=== PATIENT | female | born 1970 | race Two or more races ===

== ENCOUNTER 2018-05-25 15:02 | Emergency (ER) | payer OTHER ==
[~2018-05-25] VITALS: Ht 154.9 cm; Wt 83.9 kg
[~2018-05-25 15:02] MED LIST: AMOXICILLIN500 MG ORAL; AZITHROMYCIN250 MG ORAL; CHERATUSSIN AC118 ML PO; IBUPROFEN400 MG ORAL; IBUPROFEN600 MG ORAL; NAPROSYN500 M1 ORAL; ZITHROMAX250 MG ORAL
[2018-05-25 15:13] VITALS: BP 117/70
[2018-05-25] MEDS ORDERED: NKM (15:17)
--- NOTE | 2018-05-25 15:37 | Emergency Room Report ---
History of Present Illness General Chief Complaint: Lower Extremity Injury Source: Patient Present Illness HPI This patient had a ground level mechanical twist/fall hurting left ankle yesterday. Can walk/weight bear but painful left ankle. No trauma, no fever, no shortness of breath, no travel history, no leg swelling. no chest pain, no diaphoresis, no exertional complaints, no nausea, no vomiting, no diarrhea, no abdominal pain. No syncope, LOC, dizziness, lightheadedness, headache. Allergies: Coded Allergies: No Known Allergies (Unverified , 06/01/15) Patient History Last Menstrual Period: 05/03/2018 Nursing Documentation-[facility] Past Medical History: No Stated History Hx Asthma: No Review of Systems Constitutional: Denies: fever Eye: Denies: acuity changes Respiratory: Denies: cough, shortness of breath Cardiovascular: Denies: chest pain Gastrointestinal: Denies: nausea, vomiting Skin: Denies: rash Neurological: Denies: headache Physical Exam Vital Signs Date Time Temp Pulse Resp B/P (MAP) Pulse Ox O2 Delivery O2 Flow Rate FiO2 05/25/18 15:13 98.1 64 16 117/70 96 Room Air 98.1 General Appearance: well appearing, no apparent distress Head: normocephalic, atraumatic ENT: hearing grossly normal, normal voice Neck: full range of motion, supple Respiratory: no respiratory distress, speaking full sentences Musculoskeletal: no calf tenderness, other - +TTP soft tissues around lat mall although no bony tenderness anywhere, good ROM Neurologic: alert, normal gait Psychiatric: mood/affect normal Skin: no rash Medical Decision Making Diagnostic Impression: Primary Impression: Left ankle sprain ER Course Clinically sprain only. XR by me (ED MD) no fx, no dislocation, no acute pathology Last Vital Signs Date Time Temp Pulse Resp B/P (MAP) Pulse Ox O2 Delivery O2 Flow Rate FiO2 05/25/18 15:13 98.1 64 16 117/70 96 Room Air 98.1 Disposition: HOME, SELF-CARE Condition: Improved Patient Instructions: Ankle Sprain Anshul Porter M.D. May 25, 2018 15:37
--- NOTE | 2018-05-25 16:30 | Diagnostic Imaging Report ---
History: PAIN Exam: XR LEFT ANKLE 3 views Comparison: None available FINDINGS: No fracture or dislocation. Soft tissue swelling. Appearances spurring at the inferior medial malleolus. Suggestion of venous calcification at the lower anterior lorenzana IMPRESSION: No fracture or dislocation. Soft tissue swelling. Appearances spurring at the inferior medial malleolus.
== END 2018-05-25 16:30 | disposition home or self-care (01) ==
LOC: EMR 16:08
DX: S93.402A Sprain of unspecified ligament of left ankle, initial encounter (principal); W18.39XA Other fall on same level, initial encounter; Y92.9 Unspecified place or not applicable
CPT/HCPCS: 99283